=== PATIENT | male | born 1965 | race Caucasian/White ===

== ENCOUNTER 2016-04-10 04:22 | Observation (INO) ==
[2016-04-10 04:46] LABS: Basophils % 0.5 %; Eosinophils # 0.1 K/mcL (0.0-0.6); Eosinophils % 2.2 %; Hematocrit 45.8 % (37.5-50.1); Immature Granulocytes % 0.5 % (0-4); Lymphocytes # 2.4 K/mcL (0.6-4.6); Lymphocytes % 37.9 %; Mean Corpuscular HGB Conc 32.8 g/dL (31.6-35.5); Mean Corpuscular Hemoglobin 29.2 pg (28.0-33.3); Mean Corpuscular Volume 89.3 fL (83.0-100.0); Mean Platelet Volume 8.6 fL (9.4-12.4); Monocytes # 0.7 K/mcL (0.0-1.3); Platelet Count 183 K/mcL (140-400); Red Blood Count 5.13 M/mcL (4.19-5.50); Red Cell Distribution Width 12.4 % (11.5-14.5); Segmented Neutrophils % 47.9 %
[2016-04-10] MEDS ORDERED: Nitroglycerin 0.4 MG TAB.SUBL SL ONE (04:47)
[2016-04-10] MEDS ORDERED: Aspirin 81 MG TAB.CHEW PO ONE (04:47)
[2016-04-10 04:52] LABS: Prothrombin Time 10.7 Seconds (9.4-12.1)
[2016-04-10 04:54] LABS: Activated Partial Thrombo Time 28.9 Seconds (26.0-36.0)
--- NOTE | 2016-04-10 04:58 | Emergency Department Note ---
Disposition Clinical Impression: Chest pain Qualifiers: Chest pain type: unspecified Qualified Code(s): R07.9 - Chest pain, unspecified Disposition: Admitted As Inpatient Condition: Good Time of Disposition: 05:54 Chest Pain HPI - General Chief Complaint: ED Chest Pain Stated Complaint: chest pains, le Time Seen by Provider: 04/10/16 04:25 Source: patient Limitations: no limitations Vital Signs Reviewed: Yes Nursing Notes Reviewed: Yes - History of Present Illness HPI Narrative: 51-year-old former smoker complains of substernal chest pain that started earlier in the evening. He states approximately approximately 7 hours prior to arrival he was walking on the stairs when the chest pain started. That time the chest pain was accompanied with shortness of breath. Approximately 2 hours prior to arrival patient had awoken feeling the same pain. He measured his blood pressure at that time and it was elevated at 160/95. He mentioned he had some nausea at that time, but denies any diaphoresis, or radiation into his neck or his upper extremities. He describes the pain as soreness, and states that he feels it into his back as well. Denies any recent illness, no medications, bowel pain, vomiting, weakness. Severity scale (1-10): 3 - Related Data Home Medications Medication Instructions Recorded Confirmed Esomeprazole Magnesium [Nexium] 40 mg PO DAILY 05/09/15 05/29/15 Metoprolol [Lopressor] 100 mg PO DAILY 05/09/15 05/29/15 Simvastatin [Zocor] 40 mg PO DAILY 05/09/15 05/29/15 ClonazePAM [Klonopin] 0.5 mg PO DAILY PRN 05/11/15 05/29/15 Diclofenac Sodium [Voltaren] 1 appl TP QID 05/29/15 05/29/15 Previous Rx's Medication Instructions Recorded HYDROcodone/Acet 5/325 mg [Force 2 tab PO Q4H PRN #25 tablet 05/29/15 5-325 mg] Oxybutynin [Ditropan] 5 mg PO TID PRN #30 tablet 05/29/15 Allergies Allergy/AdvReac Type Severity Reaction Status Date / Time No Known Allergies Allergy Verified 05/09/15 11:16 All systems ED: reviewed and negative except as stated. Constitutional: Denies: fever, chills Eyes: Denies: eye pain ENT ED: Denies: ear pain Cardiovascular: Reports: as per HPI, chest pain, dyspnea on exertion Respiratory: Denies: cough, wheezes Gastrointestinal: Reports: as per HPI. Denies: abdominal pain Genitourinary: Denies: dysuria Musculoskeletal: Reports: back pain (chronic) Integumentary: Denies: rash Neurological: Denies: headache Psychiatric: Denies: anxiety Endocrine: Denies: fatigue Hematological/Lymphatic: Denies: easy bleeding Allergic/Immunologic: Denies: facial swelling Chest Pain PMH - Past Medical History Medical history: Reports: GERD, hyperlipidemia, hypertension, kidney stones Psychiatric history: Reports: no psych history - Social History Smoking Status: Former smoker (1/2ppd [id number]; dc approx 2001) Alcohol use: Reports: none Drug use: Reports: none Physical Exam - General Limitations: no limitations General appearance: alert, in no apparent distress - Head Head exam: normocephalic - Eye Eye exam: Present: normal appearance, EOMI - ENT ENT exam: normal exam, normal oropharynx - Neck Neck exam: Present: full ROM - Chest Chest inspection: Present: symmetric chest wall rise - Respiratory Respiratory exam: Present: normal lung sounds bilaterally. Absent: respiratory distress - Cardiovascular Cardiovascular exam: Present: regular rate, normal rhythm - Abdominal Exam Abdominal exam: Present: soft, Non-Tender - Extremities Exam Extremities exam: Present: normal inspection, full ROM, normal capillary refill. Absent: tenderness - Back Exam Back exam: Present: normal inspection, full ROM - Neurological Exam Neurological exam: Present: alert, oriented X3 - Psychiatric Psychiatric exam: Present: normal affect - Skin Skin exam: Present: warm, dry, intact, normal color. Absent: rash, cyanosis, diaphoresis Course Course Narrative: 51-year-old male former smoker arrived via private vehicle with acute onset of substernal chest pain he describes as pressure. Pain originally started in the evening prior to arrival patient got upstairs. He was accompanied with some shortness of breath and nausea. He also mentioned that his blood pressure was elevated at that time, 160/95. EKG shows no ischemic changes. Cardiac risk factors include hypertension, hyperlipidemia, former smoker, obesity. He states that he does not believe he has any CAD in his family, Patient was evaluated with stress test approximately 8 years ago for chest pain. The medical records, cardiopulmonary ports from 1999 and available in EMR. States his stress test was normal and his chest pain was attributed to medications. Nitroglycerin and Aspirin ordered. Workup initiated. - Reevaluation(s) Reevaluation #1: Patient states that his pain level was 3/10 upon arrival. After nitroglycerin patient stated his pain had improved. Chest x-ray normal. Troponin normal. Lab work and exam unremarkable. Discussed patient with Dr. Venegas, who also placed on the patient and agreed for admission for cardiac rule out. Time: 05:40 Reevaluation #2: Patient discussed with and accepted by hospitalist Dr. Flannery Time: 05:54 Vital Signs Temperature 97.7 F 04/10/16 04:26 Pulse Rate 60 04/10/16 04:26 Respiratory Rate 16 04/10/16 04:26 Blood Pressure 171/108 04/10/16 04:26 O2 Sat by Pulse Oximetry 99 04/10/16 04:26 Temperature 97.7 F 04/10/16 04:26 Pulse Rate 58 04/10/16 05:03 Respiratory Rate 18 04/10/16 06:10 Blood Pressure 151/85 04/10/16 06:10 O2 Sat by Pulse Oximetry 96 04/10/16 05:03 Oxygen Delivery Oxygen Delivery Room Air Chest Pain - Lab Data Lab results reviewed: Yes I reviewed the patient's lab results. Result diagrams: 04/10/16 04:35 04/10/16 04:35 Lab Results 04/10/16 04/10/16 04/10/16 Range/Units 04:35 04:35 04:35 WBC 6.3 (4.3-11.1) K/mcL RBC 5.13 (4.19-5.50) M/mcL Hgb 15.0 (12.9-16.9) g/dL Hct 45.8 (37.5-50.1) % MCV 89.3 (83.0-100.0) fL MCH 29.2 (28.0-33.3) pg MCHC 32.8 (31.6-35.5) g/dL RDW 12.4 (11.5-14.5) % Plt Count 183 (140-400) K/mcL MPV 8.6 L (9.4-12.4) fL Immature Gran % 0.5 (0-4) % Seg Neutrophils % 47.9 % Lymphocytes % 37.9 % Monocytes % 11.0 % Eosinophils % 2.2 % Basophils % 0.5 % Neutrophils # 3.0 (1.6-8.9) K/mcL Lymphocytes # 2.4 (0.6-4.6) K/mcL Monocytes # 0.7 (0.0-1.3) K/mcL Eosinophils # 0.1 (0.0-0.6) K/mcL Basophils # 0.0 (0.0-0.2) K/mcL PT 10.7 (9.4-12.1) Seconds INR 1.0 APTT 28.9 (26.0-36.0) Seconds Sodium 138 (136-145) mEq/L Potassium 4.1 (3.5-4.5) mEq/L Chloride 104 (98-109) mEq/L Carbon Dioxide 25 (19-29) mEq/L BUN 17 (8-26) mg/dL Creatinine 1.05 (0.72-1.25) mg/dL Est GFR ( Amer) > 60 (> 60) Est GFR (Non-Af Amer) > 60 (> 60) BUN/Creatinine Ratio 16 (6-26) Glucose 107 H (70-99) mg/dL Calculated Osmolality 288 (280-300) Calcium 9.4 (8.6-10.8) mg/dL Troponin I (0-0.03) ng/mL 04/10/16 Range/Units 04:35 WBC (4.3-11.1) K/mcL RBC (4.19-5.50) M/mcL Hgb (12.9-16.9) g/dL Hct (37.5-50.1) % MCV (83.0-100.0) fL MCH (28.0-33.3) pg MCHC (31.6-35.5) g/dL RDW (11.5-14.5) % Plt Count (140-400) K/mcL MPV (9.4-12.4) fL Immature Gran % (0-4) % Seg Neutrophils % % Lymphocytes % % Monocytes % % Eosinophils % % Basophils % % Neutrophils # (1.6-8.9) K/mcL Lymphocytes # (0.6-4.6) K/mcL Monocytes # (0.0-1.3) K/mcL Eosinophils # (0.0-0.6) K/mcL Basophils # (0.0-0.2) K/mcL PT (9.4-12.1) Seconds INR APTT (26.0-36.0) Seconds Sodium (136-145) mEq/L Potassium (3.5-4.5) mEq/L Chloride (98-109) mEq/L Carbon Dioxide (19-29) mEq/L BUN (8-26) mg/dL Creatinine (0.72-1.25) mg/dL Est GFR ( Amer) (> 60) Est GFR (Non-Af Amer) (> 60) BUN/Creatinine Ratio (6-26) Glucose (70-99) mg/dL Calculated Osmolality (280-300) Calcium (8.6-10.8) mg/dL Troponin I 0.01 (0-0.03) ng/mL - Radiology Data Radiology results reviewed: Yes I reviewed the patient's radiology results. - EKG Data EKG attestation: Yes I reviewed and interpreted this EKG. EKG results narrative: EKG shows sinus bradycardia with rate of 58, and right bundle branch block. This is consistent with his previous EKG performed approximately one year ago. No ST changes or signs of acute ischemia. Heart Score - Score History: Moderately Suspicious EKG: Non Specific repolarisation Disturbance Age: 45-65 Risk Factors: Equal/Greater than 3 risk factor or history of atherosclerotic disease Troponin: Less than normal limit HEART Score Total: 5
[2016-04-10 05:04] LABS: BUN/Creatinine Ratio 16 (6-26); Blood Urea Nitrogen 17 mg/dL (8-26); Calcium 9.4 mg/dL (8.6-10.8); Carbon Dioxide 25 mEq/L (19-29); Chloride 104 mEq/L (98-109); Glucose 107 mg/dL (70-99); Osmolality,Calculated 288 (280-300); Potassium 4.1 mEq/L (3.5-4.5); Sodium 138 mEq/L (136-145); eGFR For African Americans > 60 (> 60); eGFR For Non-African Americans > 60 (> 60)
--- NOTE | 2016-04-10 05:39 | Emergency Department Note ---
START Narrative - START START: I examined this patient and my medical decision-making was reviewed with the COMMUNICATIONS ASSISTANT/PA/Advanced Practice Nurse/Resident Physician. I agree with the documented findings, disposition and treatment plan as described except to the extent set forth below. This is a 51-year-old male who started having chest pain yesterday mid-sternal non-radiating. Patient states it is worse when he is going up the stairs. Patient has not had any cardiac stents or heart cath. Patient had a negative cardiac workup initially. Patient does have risk factors of hypertension, hyperlipidemia, and a family history. Patient is not diabetic. Pt has a benign physical exam. We will admit patient for observation. 05:39.
[2016-04-10] MEDS ORDERED: Acetaminophen 325 MG TABLET PO PRN (08:07)
[2016-04-10] MEDS ORDERED: Ibuprofen 400 MG TABLET PO PRN (08:07)
[2016-04-10] MEDS ORDERED: Ondansetron 4 MG/2 ML VIAL IVP PRN (08:07)
--- NOTE | 2016-04-10 08:16 | Internal Med History&Physical ---
Date of Encounter: 04/10/16 Time of Encounter: 07:30 Assessment and Plan (1) Chest pain Current visit: Yes Status: Acute Rule out acute coronary syndrome. Could be secondary to uncontrolled hypertension, blood pressure on admission was 171/108. First troponin was negative. EKG showed no acute ischemic changes. Chest x-ray was negative for any acute process. Continue aspirin, property assessment monitor and blood pressure control with lisinopril and Lopressor. Tylenol when necessary. Will follow-up serial troponins and EKG in the morning. If those are negative , I will order an exercise nuclear stress test. 51-year-old male with risk factors of obstructive sleep apnea on CPAP, hypertension and hyperlipidemia who presents with left-sided chest pain. I will place patient sent in observation with the expected discharge the next day. Qualifiers: Chest pain type: unspecified Qualified Code(s): R07.9 - Chest pain, unspecified (2) HTN (hypertension) Current visit: Yes Status: Acute Controlled hypertension. Start lisinopril. Decrease home dose of Lopressor to 25 twice a day. Qualifiers: Hypertension type: essential hypertension Qualified Code(s): I10 - Essential (primary) hypertension (3) ARNAUD on CPAP Current visit: Yes Status: Acute Continue CPAP at bedtime. Per patient he is compliant with CPAP machine at home. Internal Medicine - H&P: HPI Chief complaint: Left sided chest pain at 9 PM yesterday. Admitted From: Home () Plans for Post Hospital Care: Home History of present illness: Mr. Ortega is a 51 year old male with past medical history, hypertension, obstructive sleep apnea on CPAP at bedtime, obesity and hyperlipidemia who developed chest pain at 9 pm yesterday. Patient was walking up the stairs at home when he suddenly developed left-sided chest pain associated with shortness of breath. He described the chest pain as a numbness, intensity 7/10, no radiation. His chest pain persisted and 30 minutes later she went to bed and slept without any issues. He woke up at 2 AM and noticed that his chest pain was still there as well as the shortness of breath. No diaphoresis, no lightheadedness, no focal deficit, no syncope, no palpitations. He came to our ER and received aspirin and nitroglycerin. Currently, his chest pain has subsided. Past Med Surg Social Fam HX - Past Medical History Medical history: GERD, hyperlipidemia, hypertension, kidney stones Psychiatric history: no psych history - Social History Smoking Status: Former smoker (1/2ppd [id number]; dc approx 2001) Smokeless Tobacco Status: Yes Alcohol use: none Drug use: none - Family History Father Living Status: Age at : 75 Cause of : Complications from surgery (pt unable to state what surgery) Hx Family Cardiac Disorders: Yes (HTN, ruptured aorta) Hx Family Respiratory Disorders: No Hx Family Cancer: No Hx Family GI Disorders: No Hx Family Genitourinary Disorders: Yes (kidney stones) Hx Family Endocrine Disorder: No Hx Family Musculoskeletal Disorders: No Hx Family Neuromuscular Disorders: No Hx Family Neurologic Disorders: No Hx Family HEENT Disorders: No Hx Family Autoimmune Disorders: No Hx Family Reproductive Disorders: No Hx Family Psychosocial Disorders: No Hx Family Medical Disorders: No Internal Medicine - H&P: Meds Esomeprazole Magnesium [Nexium] 40 mg PO DAILY 05/09/15 [History] Metoprolol [Lopressor] 100 mg PO DAILY 05/09/15 [History] Simvastatin [Zocor] 40 mg PO DAILY 05/09/15 [History] Diclofenac Sodium [Voltaren] 1 appl TP QID PRN 05/29/15 [History] Allergies No Known Allergies Allergy (Verified 05/09/15 11:16) All Systems PM: A 10-system review of systems was performed and is negative for pertinent findings except as documented above in the HPI. - Constitutional Vitals: Temp Pulse Resp BP Pulse Ox 98.4 F 54 18 151/85 98 04/10/16 06:01 04/10/16 06:01 04/10/16 06:10 04/10/16 06:10 04/10/16 06:01 General appearance: Present: cooperative, A&O X 3, pleasant, no acute distress, answers questions appropriately - Head Head exam: Present: atraumatic, normal inspection, normocephalic - Eye Eye exam: Present: PERRL, sclera anicteric - ENT ENT exam: Present: mucous membranes moist - Neck Neck exam general surgery: Present: normal inspection, supple, trachea midline - Respiratory Respiratory exam: Present: CTAB - Cardiovascular Cardiovascular exam: Present: RRR - GI/Abdominal GI/Abdominal exam: Present: normal bowel sounds, soft. Absent: distended, tenderness - Extremities Exam Extremities exam: Present: normal inspection, radial pulses palpable and symetrical. Absent: pedal edema - Back Exam Back exam: Present: normal inspection. Absent: CVA tenderness (L), CVA tenderness (R), tenderness - Neurological Exam Neurological exam: Present: alert, oriented X3, no focal deficits, strengths equal and symetr throughout. Absent: facial droop, speech deficit - Skin Skin exam: Present: normal color. Absent: diaphoretic, rash Internal Med - H&P Results - Labs CBC & Chem 7: 04/10/16 04:35 04/10/16 04:35 - EKG Data -: EKG Interpreted by Myself EKG shows normal: sinus rhythm - Diagnostic Studies Chest x-ray Status: image reviewed by me (no acute process)
[2016-04-10 12:10] VITALS: BP 155/91
--- NOTE | 2016-04-10 14:11 | Electrocardiograph Report ---
[facility] Test Date: 2016-04-10 Pat Name: Favian Ortega Department: 102 Room: 2A44 Gender: M Slip Cover Sewer: Sai : 1965 Requested By: Maureen Venegas Order Number: [id number] Reading MD: Mode Ortiz Measurements Intervals [facility] Rate: 58 P: 44 NV: 178 QRS: -2 QRSD: 138 T: -19 QT: 427 QTc: 424 Interpretive Statements SINUS BRADYCARDIA RIGHT BUNDLE BRANCH BLOCK MINIMAL VOLTAGE CRITERIA FOR LVH, CONSIDER NORMAL VARIANT Electronically Signed On 04-10-16 14:10:28 EST by Mode Ortiz
--- NOTE | 2016-04-10 14:57 | Discharge Summary ---
Date of Encounter: 04/10/16 Time of Encounter: 14:57 - Discharge Diagnosis (1) Chest pain Priority: Primary Status: Acute Qualifiers: Chest pain type: unspecified Qualified Code(s): R07.9 - Chest pain, unspecified (2) HTN (hypertension) Priority: Primary Status: Acute Qualifiers: Hypertension type: essential hypertension Qualified Code(s): I10 - Essential (primary) hypertension (3) ARNAUD on CPAP Priority: Secondary Status: Chronic (4) Obesity (BMI 30-39.9) Priority: Secondary Status: Chronic - Discharge Medications Prescriptions: Aspirin 81 mg PO DAILY #30 tab.chew Lisinopril [Zestril] 10 mg PO DAILY #30 tablet Home Medications: Esomeprazole Magnesium [Nexium] 40 mg PO DAILY 05/09/15 [History] Simvastatin [Zocor] 40 mg PO DAILY 05/09/15 [History] Diclofenac Sodium [Voltaren] 1 appl TP QID PRN 05/29/15 [History] Aspirin 81 mg PO DAILY #30 tab.chew 04/10/16 [Rx] Lisinopril [Zestril] 10 mg PO DAILY #30 tablet 04/10/16 [Rx] Metoprolol [Lopressor] 50 mg PO DAILY #0 04/10/16 [Rx] Allergies/Adverse Reactions: Allergies No Known Allergies Allergy (Verified 05/09/15 11:16) Procedures/tests Complete & Pending: Procedures Performed prior 72 hours Category Date Time Status NM kristen perf SPECT multi [NM] Routine Exams 04/10/16 13:57 Ordered ECG 12 lead ECG [ECG] AM 0600 Y 04/11/16 06:00 Ordered SP exercise nuclear stress Routine Y 04/11/16 07:00 Ordered Date of admission: 04/10/16 06:01 Primary care physician: Sven Wilder MD - Patient Status Disposition: Home, Self-Care Condition: Good Functional capacity at discharge: independent ambulation Overall status at discharge: patient is back to baseline - Ambulatory Orders Ambulatory Orders: SP exercise nuclear stress Time Frame: 04/11/16, Facility: [facility], Location: [facility] - Discharge Instructions Instructions: Chest Pain (DC), Chronic Hypertension (DC) Follow Up With: Sven Wilder MD [Primary Care Provider] - (f/u in 1 week for HTN, obesity and ARNAUD) Additional Instructions: stress test tomorrow. check BP daily at same time. f.u with PCP for weight loss program, sleep study and repeat blood test. - Diet and Activity Activity: resume usual activities as tolerated Diet: low fat, low cholesterol, low salt diet Hospital course: Mr. Ortega is a 51 year old male with past medical history, hypertension, obstructive sleep apnea on CPAP at bedtime, obesity and hyperlipidemia who developed atypical chest pain at 9 pm yesterday. In our ED, his BP was 171/108 and he received aspirin and nitroglycerin. First troponin was negative. EKG showed no acute ischemic changes. Chest x-ray was negative for any acute process. His BP remained elevated and he was started on lisinopril. He continue on aspirin and Lopressor. He remained asymptomatic at rest and on exertion and was eager to go home. PLAN: stress test as outpatient tomorrow. check BP daily. f/u with PCP next week for HTN, ARNAUD and weight loss program. check BMP in 1 week due to starting lisinopril. may need a repeat sleep study in the near future. - Time Spent with Patient Total time spent providing and/or coordinating discharge services: - Constitutional Vitals: Temp Pulse Resp BP Pulse Ox 97.7 F 56 18 155/91 95 04/10/16 12:10 04/10/16 12:10 04/10/16 12:10 04/10/16 12:10 04/10/16 12:10 General appearance: Present: cooperative, A&O X 3, pleasant, no acute distress, answers questions appropriately
[2016-04-11] MEDS ORDERED: Aspirin 81 MG TAB.CHEW PO SCH (09:00)
== END 2016-04-10 16:20 | disposition home or self-care (01) ==
LOC: EMEROO 04:22 → 2ANU 04:22
PROVIDERS: ADMIT Internal Medicine; ATTEND Internal Medicine